=== PATIENT | female | born 1985 | race African-American/Black ===

== ENCOUNTER 2016-11-05 17:15 | Emergency (ER) | payer MEDICAID, OTHER ==
--- NOTE | 2016-11-05 17:53 | PSYCHOLOGICAL NOTE ---
Psych Note - Psych Note Psych Note: Patient has a chronic history of homelessness. She states that A was trying to get her into the [facility] however there is no beds until Tuesday. Patient states there are no changes from this morning when patient was evaluated by this clinician (patient has dual chart currently because patient came in yesterday under a fictitious name; patient was psychiatrically cleared today and was recommended for discharge planning to assist however patient AMA prior to discharge planning assistance.) Patient states she has suicidal ideation however still has no plan. Patient is psychiatrically cleared for discharge as there is no new concerns. Patient is not demonstrating acute psychosis and has chronic homelessness and depression. Patient was recommended to [facility] for outpatient services today not for a referral for inpatient services. Psych note 11/05/16 from noon Patient presented to the emergency room for mental health evaluation, she states that she does not remember large portions of her life, including where her 2-year-old daughter is right now, stating that she feels like something bad has happened to her, she cannot or will not discuss where she has been over the past few months, where she is currently living, and will not provide her date of , in fact when she signed and she did so under a fictitious name, however one of the staff members here was able to identify patient as she went to elementary and high school with her, and did report to me that she was feeling suicidal, although she was unable to identify any specific plan to harm herself. Patient was difficult to arouse and when ask how she slept, she stated "bad." when asked why she stated "homelessness." Patient was reminded that she spent the night in the ED and she stated "oh, fine." The patient states she is homeless and has no where to go. She continued to state that she hears voices on and off thorough out the day, outside of her head but does not recognize the voice. she continued to state that she has suffered from this on and off for years and she use to receive services from [facility] many years ago. Patient states that she "sometimes" has thoughts of hurting herself or others but denies having a plan. Patient was released from detention last night. V60.0 (Z59.0) Homelessness V62.5 (Z65.2) Problems related to release from long-term Impression/plan: Patient is psychiatrically clear for discharge. Patient states that she hears voices on and off through out the day but does not present as responding to internally stimuli currently. Patient was observed thought the morning and patient only slept; not psychosis is noted. Patient does not met criteria for IVC per [place] GS 122 C. Patient is psychiatrically clear for discharge. Patient is recommended to follow up with [facility] upon discharge for outpatient services. Patient is also recommended for discharge planing to assist with reintegration and homelessness. Dr. Mccann was consulted on the care and mangement of this patient; attending physician is in agreement with recommendations and disposition.
--- NOTE | 2016-11-05 18:57 | ER Document Report ---
ED Medical Screen (RME) - General Stated Complaint: ANXIETY Notes: Patient states she was brought back to [facility] today by [facility] because there were no rooms available at [facility]. Patient evaluated by ER and discharged today by psych, patient states she has suicidal homicidal thoughts, has a plan to go to her father's house and shoot herself. States is the same plan that she had earlier when she was seen.Patient states hearing voices off and on. Consult Dr. Recinos, who stated do not repeat labs. I have greeted and performed a rapid initial assessment of this patient. A comprehensive ED assessment and evaluation of the patient, analysis of test results and completion of the medical decision making process will be conducted by additional ED providers. TRAVEL OUTSIDE OF THE [place] IN LAST 30 DAYS: No - Related Data Allergies/Adverse Reactions: haloperidol [Haloperidol] Allergy (Intermediate, Verified 05/17/14 02:02) Swelling of tongue Past Medical History GI Medical History: Reports: Hx Gastroesophageal Reflux Disease - OCCASSIONAL DURING Psychiatric Medical History: Reports: Hx Bipolar Disorder, Hx Depression, Hx Schizophrenia Denies: Hx Post Traumatic Stress Disorder Past Surgical History: Reports: Hx Section - Immunizations Hx Diphtheria, Pertussis, Tetanus Vaccination: Yes Physical Exam - Vital signs Vitals: Temp Pulse Resp BP Pulse Ox 98.0 F 106 H 14 109/66 100 11/05/16 17:23 11/05/16 17:23 11/05/16 17:23 11/05/16 17:23 11/05/16 17:23 - Notes Notes: Patient in no acute distress in triage. Flat affect. Eating in triage. - Respiratory Respiratory status: No respiratory distress Breath sounds: Normal Course - Vital Signs Vital signs: Temp Pulse Resp BP Pulse Ox 98.0 F 106 H 14 109/66 100 11/05/16 17:23 11/05/16 17:23 11/05/16 17:23 11/05/16 17:23 11/05/16 17:23
--- NOTE | 2016-11-05 22:37 | ER Document Report ---
ED General - General TRAVEL OUTSIDE OF THE [place] IN LAST 30 DAYS: No <MIC WASSERMAN - Last Filed: 11/06/16 06:45> <STEVE PALACIO - Last Filed: 11/06/16 09:41> - General Chief Complaint: Psych Problem Stated Complaint: ANXIETY Notes: Patient is a 31-year-old female presents with complaint of suicidal homicidal ideations. Patient was seen earlier in the ER. She is cleared by psychiatrist. I did read the psychiatrist no. At that time psychiatrist noted that the patient complained of intermittent suicidal thoughts but never had a plan. Patient returns now saying that she plans to go to her father's house, take his guns, and shoot herself. Other complaints at this time. Patient denies any chronic medical problems. She denies taking medications. (MIC WASSERMAN) - Related Data Allergies/Adverse Reactions: haloperidol [Haloperidol] Allergy (Intermediate, Verified 05/17/14 02:02) Swelling of tongue Past Medical History - Social History Smoking Status: Current Every Day Smoker Chew tobacco use (# tins/day): No Frequency of alcohol use: None Drug Abuse: None Family History: Reviewed & Not Pertinent Patient has suicidal ideation: No Patient has homicidal ideation: No Renal/ Medical History: Denies: Hx Peritoneal Dialysis GI Medical History: Reports: Hx Gastroesophageal Reflux Disease - OCCASSIONAL DURING Psychiatric Medical History: Reports: Hx Bipolar Disorder, Hx Depression, Hx Schizophrenia Denies: Hx Post Traumatic Stress Disorder Past Surgical History: Reports: Hx Section - Immunizations Hx Diphtheria, Pertussis, Tetanus Vaccination: Yes <MIC WASSERMAN - Last Filed: 11/06/16 06:45> Review of Systems <MIC WASSERMAN - Last Filed: 11/06/16 06:45> <STEVE PALACIO - Last Filed: 11/06/16 09:41> - Review of Systems Notes: My Normal Review Basic REVIEW OF SYSTEMS: CONSTITUTIONAL : Denies fever, chills, or sweats. Denies recent illness. EENT: Denies eye, ear, throat, or mouth pain or symptoms. Denies nasal or sinus congestion. RESPIRATORY: Denies cough, cold, or chest congestion. Denies shortness of breath, difficulty breathing, or wheezing. GASTROINTESTINAL: Denies abdominal pain. Denies nausea, vomiting, or diarrhea. Denies constipation. Last BM: GENITOURINARY: Denies difficulty urinating, painful urination, burning, frequency, or blood in urine. MUSCULOSKELETAL: Denies neck or back pain or joint pain or swelling. SKIN: Denies rash or skin lesions. NEUROLOGICAL: Denies altered mental status or loss of consciousness. Denies headache. Denies weakness or paralysis or loss of use of either side. Denies problems with gait or speech. Denies sensory or motor loss. PSYCHIATRIC: Suicidal ideations and plan. ALL OTHER SYSTEMS REVIEWED AND NEGATIVE. (MIC WASSERMAN) Physical Exam <MIC WASSERMAN - Last Filed: 11/06/16 06:45> <STEVE PALACIO - Last Filed: 11/06/16 09:41> - Vital signs Vitals: Temp Pulse Resp BP Pulse Ox 98.0 F 106 H 14 109/66 100 11/05/16 17:23 11/05/16 17:23 11/05/16 17:23 11/05/16 17:23 11/05/16 17:23 - Notes Notes: General Appearance: Well nourished, alert, cooperative, no acute distress, no obvious discomfort. Vitals: reviewed, See vital signs table. Head: no swelling or tenderness to the head Eyes: PERRL, EOMI, Conjuctiva clear Mouth: No decreasd moisture Lungs: No wheezing, No rales, No rhonci, No accessory muscle use, good air exchange bilaterally. Heart: Normal rate, Regular rythm, No murmur, no rub Extremities: strength 5/5 in all extremities, good pulses in all extremities, no swelling or tenderness in the extremities, no edema. Skin: warm, dry, appropriate color, no rash Neuro: speech clear, oriented x 3, normal affect, responds appropriately to questions. (MIC WASSERMAN) Course - Laboratory Result Diagrams: 11/06/16 04:35 11/06/16 04:35 <MIC WASSERMAN - Last Filed: 11/06/16 06:45> - Laboratory Result Diagrams: 11/06/16 04:35 11/06/16 04:35 <STEVE PALACIO - Last Filed: 11/06/16 09:41> - Vital Signs Vital signs: Temp Pulse Resp BP Pulse Ox 98.0 F 84 12 112/71 100 11/05/16 17:23 11/06/16 05:05 11/06/16 05:05 11/06/16 05:05 11/06/16 05:05 - Laboratory Laboratory results interpreted by me: 11/06/16 11/06/16 04:35 04:35 Hgb 10.9 L Hct 33.8 L RDW 14.8 H Sodium 145.7 H Salicylates < 1.0 L Acetaminophen < 10 L - EKG Interpretation by Me Additional EKG results interpreted by me: 11/06/16 04:50 EKG is reviewed and interpreted by me. EKG shows normal sinus rhythm with rate of [address] segment elevation or depression. No ischemic T wave inversions. SD interval, QRS duration, QTC intervals are within normal range. No old EKG available for comparison. (MIC WASSERMAN) - Transfer of Care Notes: 11/06/16 05:52 Patient is medically stable for psychiatric evaluation. Patient of course came back in because she now says that she is suicidal and has a plan. When she was here previously she claims suicidal ideations but refused having a plan. We will have psychiatry reevaluate her this morning. Patient is voluntary and wants to stay. Dictation of this chart was performed using voice recognition software; therefore, there may be some unintended grammatical errors. 11/06/16 06:45 (MIC WASSERMAN) Discharge <MIC WASSERMAN - Last Filed: 11/06/16 06:45> <STEVE PALACIO - Last Filed: 11/06/16 09:41> - Discharge Clinical Impression: Suicidal ideations Condition: Stable Disposition: PSYCH HOSP/UNIT Additional Instructions: Follow-up with the resources.
[2016-11-06 04:52] LABS: ABSOLUTE BASOPHILS # (AUTO) 0.1 10^3/uL (0.0-0.2); ABSOLUTE EOSINOPHILS # (AUTO) 0.3 10^3/uL (0.0-0.6); ABSOLUTE LYMPHOCYTES (AUTO) 2.9 10^3/uL (0.5-4.7); ABSOLUTE MONOCYTES (AUTO) 0.4 10^3/uL (0.1-1.4); BASOPHILS % (AUTO) 0.6 % (0-2); EOSINOPHILS % (AUTO) 3.4 % (0-6); HEMATOCRIT 33.8 % (36.0-47.0); HEMOGLOBIN 10.9 g/dL (12.0-15.5); HGB HCT DIFFERENCE -1.1; LYMPHOCYTES % (AUTO) 34.1 % (13-45); MEAN CORPUSCULAR HEMOGLOBIN 27.7 pg (27.0-33.4); MEAN CORPUSCULAR HGB CONC 32.3 g/dL (32.0-36.0); MEAN CORPUSCULAR VOLUME 86 fl (80-97); MONOCYTES % (AUTO) 4.2 % (3-13); RED BLOOD COUNT 3.95 10^6/uL (3.72-5.28); RED CELL DISTRIBUTION WIDTH 14.8 % (11.5-14.0); SEGMENTED NEUTROPHILS % (AUTO) 57.7 % (42-78); WHITE BLOOD COUNT 8.6 10^3/uL (4.0-10.5)
[2016-11-06 05:19] LABS: ALANINE AMINOTRANSFERASE 35 U/L (9-52); ALBUMIN 3.7 g/dL (3.5-5.0); ALKALINE PHOSPHATASE 48 U/L (38-126); ANION GAP 9 (5-19); ASPARTATE AMINO TRANSFERASE 27 U/L (14-36); BILIRUBIN,TOTAL 0.5 mg/dL (0.2-1.3); BLOOD UREA NITROGEN 9 mg/dL (7-20); CALCIUM 9.3 mg/dL (8.4-10.2); CARBON DIOXIDE 30 mmol/L (22-30); CHLORIDE 107 mmol/L (98-107); CREATININE RESULT 0.55 mg/dL (0.52-1.25); GLUCOSE 81 mg/dL (75-110); POTASSIUM 4.1 mmol/L (3.6-5.0); SODIUM 145.7 mmol/L (137-145); TOTAL PROTEIN 6.4 g/dL (6.3-8.2)
[2016-11-06 05:21] LABS: ALCOHOL < 10 mg/dL (NONE DETECTED)
--- NOTE | 2016-11-06 09:05 | PSYCHOLOGICAL NOTE ---
Psych Note - Psych Note Psych Note: Patient is a 31-year-old female presents with complaint of suicidal homicidal ideations. Patient reevaluated Patient states that she is not doing well however there is no change from when she saw clinician last time. Patient states she needs inpatient treatment so she has someone to talk to and she can go to group. She continue disclose that she needs to get to the automobile she is unable to stay in a snf as long as other people and why she can't be around other people without getting mad. Patient states she did go to [facility] for outpatient services however states that that is not what she needs that she's are reestablished at [facility]. When asked why she did not disclose this previously she stated that it is getting harder to get into [facility] and that when she talked to them it was going to take up to 3 months to get in. Patient repeatedly stated that she needed inpatient and that the clinician cannot know what is going on in her head. She continued to state that she wants someone else to evaluate her. Patient states that she is unable to get her disability check at a can't apply for food stamps until she has an address. Patient states she wants the hospital to set her up with a residential. Patient is alert and orientated to person place time and circumstance. Mood is dysphoric with flat affect. Patient endorses suicidal ideation however states she does not have a plan; clinician notes that when patient feels there is a possibility of discharge she discloses new information. Patient denies homicidal ideation area patient endorses auditory hallucinations; clinician notes patient is not responding to internal stimuli currently. No delusions are noted. Thought process is logical organized and linear. Thought content is goal orientated to seeking inpatient treatment. Conversational speech was within normal rate tone and prosody. Eye contact was well maintained. Intellectual abilities appear to be within average range. Attention and concentration are fair. Insight, judgment, impulse control are poor. V60.0 (Z59.0) Homelessness V62.5 (Z65.2) Problems related to release from senior living Impression/plan: Patient is psychiatrically clear for discharge. patient states that she hears voices on and off through out the day but does not present as responding to internally stimuli currently. Patient was observed thought the morning yesterday and patient only slept; no psychosis was noted. Patient came back to [facility] ED last night and was evaluated; clinician notes patient was not responding to internal stimuli. Her thought processes were organized and linear. The patient was able to follow conversation with no difficulty, had no side eye movements, or interacting with hallucinations were observed. Patient was reevaluated again this morning; patient again has not demonstrated any psychosis or responding to internal stimuli. Patient is requesting group therapy and someone to talk to; however, is unable or unwilling to understand the patient is requesting, and is what she needs for her mental health, is outpatient services. Patient requests someone else to evaluate her after becoming agitated when it was explained that she does not meet criteria for inpatient psychiatric hospitals. Patient states she wants the hospital place her in the residential. When it was explained again to patient the process, patient asked Clinician to leave the room; clinician complied. Clinician notes patient was released from retirement 11/04/2016, has suffered from chronic homelessness since at least 2013, came in to [facility] ED on 04/2017 under a fictitious name, is demonstrating behavior consistent with attempting to achieve secondary gain by coming into the ED, and when the patient feels there is a possibility of discharge she discloses new information. Clinician attempted to recommended discharge planing to assist with patient yesterday; however, the patient AMA before being seen. Patient does not met criteria for IVC per [place] GS 122 C. Patient is psychiatrically clear for discharge. Patient is recommended to follow up with [facility] or provider of choice upon discharge for outpatient services. Dr. Mccann was consulted on the care and management of this patient; attending physician is in agreement with recommendations and disposition.
--- NOTE | 2016-11-06 09:39 | ER Document Report ---
Doctor's Note Notes: This is a 31-year-old female who is homeless and has a history of depression who presented in with suicidal ideation. Currently she denies suicidal ideation and wants to go home. The patient was evaluated yesterday on a digit under a different name and felt safe for discharge. She is denying suicidal thoughts to me and would like to leave. There is no acute indication to keep her here against her will and she will will be referred to follow-up at [facility]. She will be given a resource list. 11/06/16 09:38
[2016-11-06 09:54] VITALS: BP 106/61
--- NOTE | 2016-11-06 10:51 | EKG REPORT ---
SEVERITY:- NORMAL ECG - SINUS RHYTHM : Confirmed by: Clotilde Tsai 06-Nov-2016 10:49:20
== END 2016-11-06 09:55 | disposition home or self-care (01) ==
LOC: ER 17:15
DX: R45.851 Suicidal ideations (principal); F17.200 Nicotine dependence, unspecified, uncomplicated; Z59.0 Homelessness; Z88.8 Allergy status to other drugs, medicaments and biological substances
CPT/HCPCS: 36415; 80053; 80307; 84703; 85025; 93005; 93010; 99285

== ENCOUNTER 2016-12-04 02:02 | Emergency (ER) | payer MEDICAID ==
--- NOTE | 2016-12-04 02:27 | ER Document Report ---
ED General - General Stated Complaint: SUICIDAL IDEATION Notes: Patient is a 31-year-old female presents to the ER via EMS for depression. Patient denies being suicidal. She says she she's been very depressed. She does not know why. She says over last 2 days she's been more depressed. She takes no medications for depression. She denies recent infections or fevers. She has no other complaints at this time. She does request to speak with psychiatry. When I went to examine the patient, the patient says she did not want examination and that she just wanted to rest. I asked her if she was here just to rest. She then said yes. I informed her that she is here just to rest and not to help with depression and we will discharge her as we cannot hold up beds just have people rest as we have many sick people waiting in the waiting room. She and then changed and said that she does want help and did agree to examination and to be seen by psychiatry. TRAVEL OUTSIDE OF THE [place] IN LAST 30 DAYS: No - Related Data Allergies/Adverse Reactions: haloperidol [Haloperidol] Allergy (Intermediate, Verified 05/17/14 02:02) Swelling of tongue Past Medical History - Social History Smoking Status: Never Smoker Frequency of alcohol use: None Drug Abuse: None Family History: Reviewed & Not Pertinent Renal/ Medical History: Denies: Hx Peritoneal Dialysis GI Medical History: Reports: Hx Gastroesophageal Reflux Disease - OCCASSIONAL DURING Psychiatric Medical History: Reports: Hx Bipolar Disorder, Hx Depression, Hx Schizophrenia Denies: Hx Post Traumatic Stress Disorder Past Surgical History: Reports: Hx Section - Immunizations Hx Diphtheria, Pertussis, Tetanus Vaccination: Yes Review of Systems - Review of Systems Notes: My Normal Review Basic REVIEW OF SYSTEMS: CONSTITUTIONAL : Denies fever, chills, or sweats. Denies recent illness. EENT: Denies eye, ear, throat, or mouth pain or symptoms. Denies nasal or sinus congestion. RESPIRATORY: Denies cough, cold, or chest congestion. Denies shortness of breath, difficulty breathing, or wheezing. GASTROINTESTINAL: Denies abdominal pain. Denies nausea, vomiting, or diarrhea. Denies constipation. Last BM: GENITOURINARY: Denies difficulty urinating, painful urination, burning, frequency, or blood in urine. FEMALE GENITOURINARY: Denies vaginal bleeding, abnormal or irregular periods. MUSCULOSKELETAL: Denies neck or back pain or joint pain or swelling. SKIN: Denies rash or skin lesions.s. NEUROLOGICAL: Denies altered mental status or loss of consciousness. Denies headache. Denies weakness or paralysis or loss of use of either side. Denies problems with gait or speech. Denies sensory or motor loss. PSYCHIATRIC: Depression ALL OTHER SYSTEMS REVIEWED AND NEGATIVE. Physical Exam - Notes Notes: General Appearance: Well nourished, alert, cooperative, no acute distress, no obvious discomfort. Well-appearing. Vitals: reviewed, See vital signs table. Eyes: PERRL, EOMI, Conjuctiva clear Mouth: No decreasd moisturethy Lungs: No wheezing, No rales, No rhonci, No accessory muscle use, good air exchange bilaterally. Heart: Normal rate, Regular rythm, No murmur, no rub Abdomen: Normal BS, soft, No rigidity, No abdominal tenderness, No guarding, no rebound, no abdominal masses, no organomegaly Extremities: good pulses in all extremities, . Skin: warm, dry, appropriate color, no rash Neuro: speech clear, oriented x 3, normal affect, responds appropriately to questions. Course - EKG Interpretation by Me Additional EKG results interpreted by me: 12/04/16 05:01 EKG is reviewed and interpreted by me. EKG shows concave up ST segment elevation consistent with early repolarization abnormality. No respiratory ST segment depression. No ischemic T wave inversions. MO interval, QRS duration, Intervals are within normal range. Old EKG for comparison is from 11/06/2016. - Transfer of Care Notes: 12/04/16 05:28 When the nurses went to control the patient's blood for medical clearance she refused. She refused to change into the loop down and. She refused to give urine sample. I went to talk to her. I informed patient that if she wants treatment we are happy to give her treatment; however, she does not want treatment then she would be discharged. When I said this the patient said "treatment for what?". I informed her that that's symmetric for her depression as she had mentioned early. Patient then started laughing. Patient is refused any treatment. She is denies suicidal ideations from beginning. She obviously forgot why she even said why she came in. I suspect patient is just wanting a place to stay as she had initially eluded to when I first talked to her. I performed a medical screening exam. Patient has no findings concerning for emergent medical condition. She has denied the beginning any suicidal thoughts to me. She does not at all appear suicidal or depressed. Patient will be discharged. Dictation of this chart was performed using voice recognition software; therefore, there may be some unintended grammatical errors. Discharge - Discharge Clinical Impression: Depression Qualifiers: Depression Type: unspecified Qualified Code(s): F32.9 - Major depressive disorder, single episode, unspecified Condition: Good Disposition: HOME, SELF-CARE Additional Instructions: PLease return to the ER if you have any thoughts of suicide, worsening depression, or want help with your depression.
--- NOTE | 2016-12-04 06:09 | EKG REPORT ---
SEVERITY:- NORMAL ECG - SINUS RHYTHM : Confirmed by: Clotilde Tsai 04-Dec-2016 06:08:44
== END 2016-12-04 06:25 | disposition home or self-care (01) ==
LOC: ER 02:02
DX: F32.9 Major depressive disorder, single episode, unspecified (principal)
CPT/HCPCS: 93005; 93010; 99285